=== PATIENT | male | born 1980 | race Asian ===

== ENCOUNTER → 2018-11-22 | Outpatient (CLI) | payer BC, SELFPAY ==
--- NOTE | 2018-11-22 | MISC_PTH ---
PATIENT: YRN RUTH LOC: [facility] U#:[id number] AGE/SX: 38/M ROOM: RE11/22/[address]: Dr. Manuel Pretty DDS : 1980 BED: DIS: 11/22/2018 SPEC #: [id number] RECD: 11/22/18 13:58 STATUS: JACQUELINE ARCHIE #: [id number] TIFF: 11/22/18 00:[address]: Manuel Pretty DEPT: SURGICAL PATHOLOGY RECD BY: Adelaide Grant Tissues: Mandible, NOS Procedures: Surgery Specimen Level IV HEADER OPERATION: Biopsy left mandible PRE-OP DIAGNOSIS: Keratocyst TISSUE SUBMITTED: Mandible MICROSCOPIC DIAGNOSIS Left mandible, biopsy: Consistent with mildly inflamed odontogenetic keratocyst. See comment. FEDERICO:[place] 11/23/18 COMMENT Please make reference to previous specimen ([id number]) oral cavity, infected left third molar and associate cyst, excision with diagnosis of multiple fragments of tooth and compatible with odontogenetic keratocyst and additional specimen from [facility], [facility], [facility] () left posterior mandible biopsy with diagnosis of inflamed mandibular epithelial cyst. Correlation with clinical, radiologic findings and appropriate follow up are necessary. Case has been reviewed in consultation with Dr. Rodriguez who concurs with the above diagnosis. IDC:AM MICROSCOPIC DESCRIPTION Slides are reviewed. 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 The specimen consists of multiple irregular fragments of reed-pink soft tissue that in aggregate measure 2 x 1.5 x 0.1 cm. The specimen is totally submitted in one cassette. / SJ:ph[place] 11/22/18 TC:5 CPT: 92705
== END | disposition home or self-care (01) ==
LOC: LABSPEC 14:11
PROVIDERS: Referring Provider Dentist Oral and Maxillofacial Surgery; Visit Provider Dentist Oral and Maxillofacial Surgery
DX: D16.5 Benign neoplasm of lower jaw bone (principal)
CPT/HCPCS: 88305

== ENCOUNTER 2019-06-30 00:09 | Emergency (ER) | payer BC, SELFPAY ==
[2019-06-30 00:09] VITALS: BP 156/91; PULSE 79; RESP 18; TEMP 36.4; O2SAT 100; BMI 22.9
--- NOTE | 2019-06-30 01:07 | ED.VIS.GEN ---
History of Present Illness Chief Complaint: Laceration Informant: Patient Onset: Today Narrative: Ykacw-dwyz-santosgh male presents laceration left hand 2 PM 10 hours prior to arrival. Stripping wires in his car when the knife slipped. Tetanus is up-to-date. No paresthesias loss of function. Reports had to go to work for a meeting therefore delayed arrival. States he copiously cleanse his wound, Neosporin and a bandage. No anticoagulation medicines. Prior similar symptoms: Yes Past Medical History - Allergies and Home Meds Allergies/Adverse Reactions: Allergies No Known Allergies Allergy (Verified 06/30/19 00:11) Primary Care Physician: Care Physician,No Primary [Primary Care Provider] - Past Medical History: None Smoking Status: Never smoker Review of Systems All systems negative except as indicated General: Denies: Fever Skin: Reports: Wounds Neurological: Denies: Parasthesia Physical Exam Vital Signs/Narrative: Vital Signs Temp Pulse Resp BP Pulse Ox 06/30/19 00:09 97.5 F L 79 18 156/91 H 100 Inital Vital Signs reviewed: Yes General: Well nourished, Well developed, No Acute Distress Head: Normocephalic, Atraumatic Eyes: Perrl, EOMI ENT: Moist mucous membranes, No rhinorrhea Neck: Supple, Nontender Cardiovascular: Regular rate, Regular rhythm, No murmurs Respiratory: No distress, CTA bilaterally, Chest nontender Abdomen: Soft, Nontender, Nondistended, Normal bowel sounds Back: Nontender, Normal Inspection Extremities: Nontender, No edema Skin: Normal color, - - Left hand: 2 cm laceration at the thenar eminence, subcu exposure, no active bleeding. Full range of motion of thumb flexion and extension. Neurological: Alert, Oriented x3, Cranial nerves II-XII grossly intact, Normal Strength, Normal Sensation Psychological: Normal affect, Normal Mood Diagnostic/Tx/Re-eval - Medical Decision Making Procedure note: Verbal consent. Laceration repair. Normal sterile conditions. 2 cc lidocaine 1% for local analgesia. Copiously cleansed with normal saline using syringe flush. Total of 3, 4-0 nylon simple interrupted sutures placed good approximation. Dressing by nursing. Patient taught procedure well. Patient with uncomplicated laceration. Repaired. Wound care discussed, signs and symptoms of infection discussed. Follow-up given for suture removal. All questions were answered. ED Disposition - Plan for ED Patient: Disposition: Home or Assisted Living Diagnosis: Laceration of hand, left Instructions: LACERATION, Hand Referrals: Manuela Leon MD [STAFF PHYSICIAN] - 10-14 Days if not better
[2019-06-30 01:20] VITALS: BP 147/64; PULSE 79; RESP 16; O2SAT 98
[2019-06-30] MEDS: Diphth,Pertuss(Acell),Tet Vac 0.5 ML Vial IM (02:00)
== END 2019-06-30 01:21 | disposition home or self-care (01) ==
PROVIDERS: Emergency Provider Emergency Medicine
DX: S61.412A Laceration without foreign body of left hand, initial encounter (principal); X78.1XXA Intentional self-harm by knife, initial encounter
CPT/HCPCS: 12001; 90715; 99284